=== PATIENT | female | born 1960 | race Caucasian/White ===

== ENCOUNTER 2021-10-06 00:54 | Emergency (ER) | payer MEDICAID ==
[~2021-10-06] VITALS: Ht 154.9 cm; Wt 72.6 kg
[~2021-10-06 00:54] MED LIST: MECL12.568
[2021-10-06 01:05] VITALS: BP 132/74
--- NOTE | 2021-10-06 01:13 | NUR ---
patient ambulated to bed 5
--- NOTE | 2021-10-06 01:29 | NUR ---
URINE OBTAINED AND URINE DIP DONE
--- NOTE | 2021-10-06 02:13 | NUR ---
PT RESTING IN BED, FAMILY AT BEDSIDE.
[2021-10-06] MEDS ORDERED: ONDANSETRON 4 MG/2 ML VIAL IVP ONE (02:15)
[2021-10-06] MEDS ORDERED: MORPHINE SULFATE 2 MG/ML SYR IVP ONE (02:15)
[2021-10-06] MEDS ORDERED: NACL 0.9% 1,000 ML IV ONE (02:15)
[2021-10-06] MEDS ORDERED: NACL 0.9% 1,000 ML IV SCH (02:15)
--- NOTE | 2021-10-06 02:38 | NUR ---
PATIENT TO CT
--- NOTE | 2021-10-06 02:40 | NUR ---
20G IV CATH RIGHT HAND
--- NOTE | 2021-10-06 02:40 | NUR ---
patient to CT via w/c
--- NOTE | 2021-10-06 02:42 | NUR ---
URINE SENT TO LAB
[2021-10-06 02:44] LABS: APPEARANCE,URINE CLEAR (CLEAR); BILIRUBIN,URINE NEGATIVE (NEGATIVE); BLOOD, URINE NEGATIVE (NEGATIVE); COLOR,URINE YELLOW (YELLOW); LEUKOCYTE ESTERASE ,URINE NEGATIVE (NEGATIVE); NITRITE, URINE NEGATIVE (NEGATIVE); UGLUCOSE NEGATIVE (NEGATIVE)
--- NOTE | 2021-10-06 02:45 | NUR ---
PT BACK FROM CT. PLACED ON MONITOR
--- NOTE | 2021-10-06 03:09 | NUR ---
LAB AT BEDSIDE
[2021-10-06 03:32] LABS: HEMOGLOBIN 13.7 g/dL (12.0-16.0)
[2021-10-06 03:40] LABS: HEMATOCRIT 42.4 % (36-48); MEAN CORPUSCULAR HEMOGLOBIN 28 pg (27-31); MEAN CORPUSCULAR HGB CONC 32 g/dL (33-37); MEAN CORPUSCULAR VOLUME 87.3 fL (80-94); PLATELET COUNT (AUTO) 391 K/uL (140-450); RED BLOOD CELL COUNT(AUTO) 4.86 MIL/uL (4.20-5.40); RED CELL DISTRIBUTION WIDTH 14.1 % (11.6-13.7); WHITE BLOOD COUNT (AUTO) 14.1 K/uL (4.8-10.8)
[2021-10-06 03:48] LABS: EOSINOPHILS % (MANUAL) 4 % (0-4); LYMPHOCYTES % (MANUAL) 19 % (20-46); MONOCYTES % (MANUAL) 5 % (5-12)
[2021-10-06 03:51] LABS: ALBUMIN 3.2 g/dL (3.4-5.0); ANION GAP 14.3 (8-16); CARBON DIOXIDE 26.5 mmol/L (21-32); CREATININE 0.7 mg/dL (0.6-1.3); POTASSIUM 3.8 mmol/L (3.5-5.1); TOTAL BILIRUBIN 0.3 mg/dL (0.0-1.0)
--- NOTE | 2021-10-06 03:59 | NUR ---
PATIENT AMBULATED TO THE BATHROOM WITH A STEADY GAIT
[2021-10-06 04:33] VITALS: BP 130/58
--- NOTE | 2021-10-06 04:33 | NUR ---
Patient discharged with v/s stable. Written and verbal after care instructions given and explained. Patient verbalized understanding. Ambulatory with steady gait. All questions addressed prior to discharge. Advised to follow up with PMD.
--- NOTE | 2021-10-06 04:36 | NUR ---
The patient's care was reviewed and supervised by Jessica Keys RN. Chart Checked
== END 2021-10-06 04:33 | disposition home or self-care (01) ==
LOC: MED 00:54
DX: R10.11 Right upper quadrant pain (principal); R10.31 Right lower quadrant pain; R11.2 Nausea with vomiting, unspecified; Z79.899 Other long term (current) drug therapy
CPT/HCPCS: 36415; 74176; 80053; 81003; 83690; 85025; 96361; 96374; 96375; 99284; J2270; J2405

== ENCOUNTER 2022-05-08 01:45 | Emergency (ER) | payer MEDICAID, OTHER ==
[~2022-05-08] VITALS: Ht 154.9 cm; Wt 77.1 kg
[2022-05-08 02:13] VITALS: BP 114/78
--- NOTE | 2022-05-08 02:28 | NUR ---
PATIENT SENT TO LOBBY.
--- NOTE | 2022-05-08 02:38 | NUR ---
TO BED 6
[2022-05-08] MEDS ORDERED: LIDOCAINE 5% 1 EA PATCH TP ONE (03:05)
[2022-05-08] MEDS ORDERED: KETOROLAC 15 MG/ML VIAL IM ONE (03:05)
[2022-05-08] MEDS ORDERED: MORPHINE SULFATE 4 MG/ML SYR IM ONE (03:05)
[2022-05-08] MEDS ORDERED: LID5T TP (04:16)
[2022-05-08 04:25] VITALS: BP 137/74
--- NOTE | 2022-05-08 04:28 | NUR ---
Patient discharged with v/s stable. Written and verbal after care instructions given and explained. Patient alert, oriented and verbalized understanding of instructions. Ambulatory with steady gait to home. All questions addressed prior to discharge. ID band removed. Patient advised to follow up with PMD. Rx of lido patch sent electronically. Patient educated on indication of medication including possible reaction and side effects. Opportunity to ask questions provided and answered.
[2022-05-09] MEDS ORDERED: CYCL-711 PO (04:00)
[2022-05-09] MEDS ORDERED: NAPR-54 PO (04:00)
[2022-05-09] MEDS ORDERED: TRAM-748 PO (04:00)
== END 2022-05-08 04:25 | disposition home or self-care (01) ==
LOC: MED 01:45
DX: M54.42 Lumbago with sciatica, left side (principal); Z79.899 Other long term (current) drug therapy
CPT/HCPCS: 96372; 99284; J1885; J2270

== ENCOUNTER 2022-05-08 23:04 | Emergency (ER) | payer OTHER ==
[~2022-05-08] VITALS: Ht 154.9 cm; Wt 77.1 kg
[~2022-05-08 23:04] MED LIST changes: +LID5T TP
--- NOTE | 2022-05-08 23:04 | NUR ---
Bam gaitan in ED - 05/08/22 at 2341 by NEHAL PT MEGAN ABDALLA, PREELLY. TAKEN TO CHAIR
[2022-05-09 02:29] VITALS: BP 145/68
--- NOTE | 2022-05-09 02:37 | NUR ---
Patient taken to Chair A.
[2022-05-09] MEDS ORDERED: DEXAMETHASONE 10 MG/ML VIAL IM ONE (02:45)
[2022-05-09] MEDS ORDERED: MORPHINE SULFATE 4 MG/ML SYR IM ONE (02:45)
--- NOTE | 2022-05-09 02:45 | NUR ---
Dr. Lindquist examining patient.
[2022-05-09] MEDS ORDERED: TRAM-748 PO (04:00)
[2022-05-09] MEDS ORDERED: NAPR-54 PO (04:00)
[2022-05-09] MEDS ORDERED: CYCL-711 PO (04:00)
[2022-05-09 04:06] VITALS: BP 145/68
--- NOTE | 2022-05-09 04:06 | NUR ---
Patient discharged. Written and verbal after care instructions given and explained. Patient alert, oriented and verbalized understanding of instructions. Ambulatory with steady gait. All questions addressed prior to discharge. ID band removed. Patient advised to follow up with PMD. Rx of flexeril, naproxen, and tramadol Hcl given. Patient educated on indication of medication including possible reaction and side effects. Opportunity to ask questions provided and answered.
== END 2022-05-09 04:06 | disposition home or self-care (01) ==
LOC: MED 23:04
DX: M54.42 Lumbago with sciatica, left side (principal); E11.9 Type 2 diabetes mellitus without complications; Z79.899 Other long term (current) drug therapy
CPT/HCPCS: 96372; 99284; J1100; J2270

== ENCOUNTER 2022-05-16 16:59 | Emergency (ER) | payer OTHER ==
[~2022-05-16] VITALS: Ht 154.9 cm; Wt 74.4 kg
[~2022-05-16 16:59] MED LIST changes: +CYCL-711 PO; +NAPR-54 PO; +TRAM-748 PO
[2022-05-16 17:51] VITALS: BP 127/78
[2022-05-16] MEDS ORDERED: LIDOCAINE 5% 1 EA PATCH TP ONE (18:45)
[2022-05-16] MEDS ORDERED: KETOROLAC 15 MG/ML VIAL IM ONE (18:45)
[2022-05-16] MEDS ORDERED: MORPHINE SULFATE 4 MG/ML SYR IM ONE (18:45)
[2022-05-16] MEDS ORDERED: IBUP-2213 PO (20:00)
[2022-05-16] MEDS ORDERED: LID5T TP (20:01)
== END 2022-05-16 20:08 | disposition home or self-care (01) ==
LOC: MED 16:59
DX: M54.42 Lumbago with sciatica, left side (principal); E11.9 Type 2 diabetes mellitus without complications; Z79.899 Other long term (current) drug therapy
CPT/HCPCS: 96372; 99284; J1885; J2270

== ENCOUNTER 2023-01-16 18:39 | Emergency (ER) | payer OTHER ==
[~2023-01-16] VITALS: Ht 154.9 cm; Wt 74.1 kg
[~2023-01-16 18:39] MED LIST changes: +IBUP-2213 PO
[2023-01-16 19:00] VITALS: BP 121/53; PULSE 71; RESP 20; TEMP 97.7; O2SAT 97
[2023-01-16 19:54] LABS: BASOPHILS # (AUTO) 0.1 K/uL (0.00-0.22); BASOPHILS % (AUTO) 1.2 % (0.0-2.0); EOSINOPHILS # (AUTO) 0.1 K/uL (0-0.4); EOSINOPHILS % (AUTO) 1.5 % (0.0-4.0); HEMATOCRIT 43.5 % (36-48); HEMOGLOBIN 14.4 g/dL (12.0-16.0); LYMPHOCYTES # (AUTO) 2.6 K/uL (2.5-16.5); LYMPHOCYTES % (AUTO) 29.3 % (20.5-51.1); MEAN CORPUSCULAR HEMOGLOBIN 29 pg (27-31); MEAN CORPUSCULAR HGB CONC 33 g/dL (33-37); MEAN CORPUSCULAR VOLUME 86.9 fL (80-94); MONOCYTES # (AUTO) 0.9 K/uL (0.8-1.0); MONOCYTES % (AUTO) 9.9 % (1.7-9.3); NEUTROPHILS # (AUTO) 5.1 K/uL (1.8-7.7); NEUTROPHILS % (AUTO) 58.1 % (42.2-75.2); PLATELET COUNT (AUTO) 335 K/uL (140-450); RED BLOOD CELL COUNT(AUTO) 5.01 MIL/uL (4.20-5.40); RED CELL DISTRIBUTION WIDTH 13.5 % (11.6-13.7); WHITE BLOOD COUNT (AUTO) 8.8 K/uL (4.8-10.8)
[2023-01-16 20:07] LABS: APPEARANCE,URINE CLEAR (CLEAR); BILIRUBIN,URINE NEGATIVE (NEGATIVE); BLOOD, URINE NEGATIVE (NEGATIVE); COLOR,URINE YELLOW (YELLOW); LEUKOCYTE ESTERASE ,URINE NEGATIVE (NEGATIVE); NITRITE, URINE NEGATIVE (NEGATIVE); PH,URINE 6.5 (5.0-9.0); PROTEIN,URINE NEGATIVE (NEGATIVE); UGLUCOSE NEGATIVE (NEGATIVE); UROBILINOGEN,URINE 0.2 EU/dL (0.2 - 1)
[2023-01-16 20:08] LABS: ALBUMIN 3.5 g/dL (3.4-5.0); ANION GAP 14.2 (8-16); CALCIUM 8.3 mg/dL (8.5-10.1); CARBON DIOXIDE 25.3 mmol/L (21-32); CREATININE 0.8 mg/dL (0.6-1.3); POTASSIUM 3.5 mmol/L (3.5-5.1); TOTAL BILIRUBIN 0.5 mg/dL (0.0-1.0); TOTAL PROTEIN, SERUM 7.3 g/dL (6.4-8.2)
[2023-01-16] MEDS ORDERED: KETOROLAC 15 MG/ML VIAL IM ONE (20:15)
[2023-01-16] MEDS ORDERED: ONDANSETRON 4 MG ODT PO ONE (20:15)
[2023-01-16] MEDS ORDERED: ACET-8905 PO (21:47)
[2023-01-16] MEDS ORDERED: CIPR500T4 PO (21:47)
[2023-01-16] MEDS ORDERED: METR-435 PO (21:47)
[2023-01-16 22:20] VITALS: BP 118/78; PULSE 68; RESP 18; TEMP 98.1; O2SAT 98
== END 2023-01-16 22:20 | disposition home or self-care (01) ==
LOC: MED 18:39
DX: K57.32 Diverticulitis of large intestine without perforation or abscess without bleeding (principal); E11.9 Type 2 diabetes mellitus without complications; E78.5 Hyperlipidemia, unspecified; Z90.710 Acquired absence of both cervix and uterus; Z98.890 Other specified postprocedural states; Z79.899 Other long term (current) drug therapy; Z79.1 Long term (current) use of non-steroidal anti-inflammatories (NSAID); Z79.2 Long term (current) use of antibiotics
CPT/HCPCS: 36415; 74176; 80053; 81003; 81025; 83690; 85025; 96372; 99285; J1885; Q0162

== ENCOUNTER 2023-07-31 07:35 | Emergency (ER) | payer OTHER ==
[~2023-07-31] VITALS: Ht 154.9 cm; Wt 77.1 kg
[~2023-07-31 07:35] MED LIST changes: +ACET-8905 PO; +CIPR500T4 PO; +METR-435 PO
[2023-07-31 07:43] VITALS: BP 121/65; PULSE 76; RESP 16; O2SAT 97
[2023-07-31 08:24] VITALS: O2SAT 97
[2023-07-31] MEDS: NACL 0.9% 1,000 ML IV ONE (08:43)
[2023-07-31] MEDS: KETOROLAC 30 MG/ML VIAL IVP ONE (08:45)
[2023-07-31 09:45] LABS: BASOPHILS % (AUTO) 0.6 % (0.0-2.0); EOSINOPHILS # (AUTO) 0.1 K/uL (0-0.4); EOSINOPHILS % (AUTO) 1.3 % (0.0-4.0); HEMATOCRIT 40.8 % (36-48); HEMOGLOBIN 13.7 g/dL (12.0-16.0); LYMPHOCYTES # (AUTO) 1.8 K/uL (2.5-16.5); LYMPHOCYTES % (AUTO) 22.3 % (20.5-51.1); MEAN CORPUSCULAR HEMOGLOBIN 29 pg (27-31); MEAN CORPUSCULAR HGB CONC 34 g/dL (33-37); MEAN CORPUSCULAR VOLUME 86.6 fL (80-94); MONOCYTES # (AUTO) 0.6 K/uL (0.8-1.0); MONOCYTES % (AUTO) 7.8 % (1.7-9.3); NEUTROPHILS # (AUTO) 5.4 K/uL (1.8-7.7); PLATELET COUNT (AUTO) 327 K/uL (140-450); RED BLOOD CELL COUNT(AUTO) 4.72 MIL/uL (4.20-5.40); RED CELL DISTRIBUTION WIDTH 13.1 % (11.6-13.7)
[2023-07-31 10:36] LABS: ANION GAP 8.7 (8-16); CARBON DIOXIDE 27.1 mmol/L (21-32); CREATININE 0.7 mg/dL (0.6-1.3); POTASSIUM 3.8 mmol/L (3.5-5.1)
[2023-07-31 10:40] LABS: ALBUMIN 2.9 g/dL (3.4-5.0); BILIRUBIN,DIRECT 0.1 mg/dL (0.0-0.3); TOTAL BILIRUBIN 0.2 mg/dL (0.0-1.0); TOTAL PROTEIN, SERUM 7.5 g/dL (6.4-8.2)
[2023-07-31] MEDS ORDERED: AZIT250T4 PO (11:00)
[2023-07-31] MEDS ORDERED: IBUP-2213 PO (11:00)
[2023-07-31 11:27] VITALS: BP 121/65; PULSE 76; RESP 16; TEMP 97.9; O2SAT 97
== END 2023-07-31 11:28 | disposition home or self-care (01) ==
LOC: MED 07:35
DX: R10.9 Unspecified abdominal pain (principal); E11.9 Type 2 diabetes mellitus without complications; Z79.4 Long term (current) use of insulin; Z79.899 Other long term (current) drug therapy; Z90.710 Acquired absence of both cervix and uterus
CPT/HCPCS: 36415; 74176; 80048; 80076; 81002; 81025; 83690; 85025; 96361; 96374; 99285; J1885; J7030